=== PATIENT | female | born 1965 | race Caucasian/White ===

== ENCOUNTER → 2024-05-26 | Outpatient (CLI) | payer BC ==
[~2024-05-26] MED LIST: ACET325 PO; ASPI81CH PO; COVARYX H.S. T1 EACH; Cyclobenzaprine10 MG PO; DILT60 PO; Inderal; NICO21TP TOP; Norco 5-325 Ta1 EACH PO; PROM25 PO; PROP60 PO; SUMA25 PO; SUMA5NI; TERB250 PO; TRAM50 PO
[2024-05-26 16:02] LABS: BASOPHILS ABSOLUTE AUTO 0.07 K/mm3 (0.00-0.23); BASOPHILS PERCENT AUTO 1 % (0-2); EOSINOPHILS ABSOLUTE AUTO 0.24 K/mm3 (0.00-0.68); EOSINOPHILS PERCENT AUTO 2 % (0-6); Hematocrit 39.2 % (33.0-51.0); Hemoglobin 13.1 g/dL (11.5-16.0); IMMATURE GRAN ABSOLUTE AUTO 0.04 K/mm3 (0.00-0.10); IMMATURE GRAN PERCENT AUTO 0 % (0-1); LYMPHOCYTES ABSOLUTE AUTO 2.46 K/mm3 (0.84-5.20); LYMPHOCYTES PERCENT AUTO 21 % (21-46); MONOCYTES ABSOLUTE AUTO 0.97 K/mm3 (0.16-1.47); MONOCYTES PERCENT AUTO 8 % (4-13); Mean Corpuscular HGB 30.8 pg (26.0-34.0); Mean Corpuscular HGB Conc 33.4 g/dL (31.5-36.5); Mean Corpuscular Volume 92 fL (80-100); Mean Platelet Volume 10.3 fL (9.1-12.4); NEUTROPHILS ABSOLUTE AUTO 7.86 K/mm3 (1.96-9.15); NEUTROPHILS PERCENT AUTO 68 % (41-73); Platelet Count 284 K/mm3 (150-400); RDW Coefficient Variation 13.7 % (11.7-14.2); RDW Standard Deviation 46.4 fL (35.1-46.3); Red Blood Cell Count 4.25 M/mm3 (3.80-5.20); White Blood Cell Count 11.64 K/mm3 (4.00-11.30)
[2024-05-26 16:05] LABS: Bun/Creatinine Ratio 29.2 (12.0-20.0); Creatinine, Blood 0.72 mg/dL (0.40-1.00); Potassium, Blood 3.9 mmol/L (3.5-5.5)
== END | disposition home or self-care (01) ==
LOC: LAB 15:57 → LAB SHORT 15:57
PROVIDERS: Physician Assistant Medical
DX: R10.32 Left lower quadrant pain (principal)
CPT/HCPCS: 80048; 85025

== ENCOUNTER 2024-06-02 13:10 | Inpatient (IN) | payer BC ==
[~2024-06-02] VITALS: Ht 157.5 cm; Wt 60.7 kg
[~2024-06-02 13:10] MED LIST changes: -AMOCLA875 PO; -DOCU100 PO; -VISBIOME 112.51 EACH PO
[2024-06-02] MEDS ORDERED: Morphine Sulfate 4 MG/1 ML Injection IV ONE (13:35)
[2024-06-02] MEDS ORDERED: Ondansetron HCl 2 MG / ML 2ML Vial IV ONE (13:35)
[2024-06-02] MEDS ORDERED: NS 1,000 ML IV SCH ×2 (13:35→15:45)
[2024-06-02] MEDS ORDERED: Piperacillin/Tazobactam Sod 3.375 GM in NS 100 ML IV ONE (13:40)
[2024-06-02] MEDS ORDERED: Ondansetron HCl 2 MG / ML 2ML Vial IV PRN (15:45)
[2024-06-02] MEDS ORDERED: FLU VACC TS2024-25(6MOS UP)/PF 45 MCG/0.5 ML SYRINGE IM SCH (15:45)
[2024-06-02] MEDS ORDERED: FentaNYL Citrate 50 MCG/ML 2 ML Injection IV PRN (15:45)
[2024-06-02] MEDS ORDERED: Piperacillin/Tazobactam Sod 3.375 GM in NS 100 ML IV SCH (18:00)
[2024-06-02 18:40] VITALS: BP 121/64
[2024-06-02 19:31] VITALS: BP 119/63
[2024-06-02] MEDS ORDERED: Morphine Sulfate 4 MG/1 ML Injection IV STA (19:53)
[2024-06-02] MEDS ORDERED: Morphine Sulfate 4 MG/1 ML Injection IV PRN (20:00)
[2024-06-03 03:46] VITALS: BP 119/70
[2024-06-03 04:56] LABS: BASOPHILS ABSOLUTE AUTO 0.06 K/mm3 (0.00-0.23); BASOPHILS PERCENT AUTO 0 % (0-2); EOSINOPHILS ABSOLUTE AUTO 0.03 K/mm3 (0.00-0.68); EOSINOPHILS PERCENT AUTO 0 % (0-6); Hematocrit 32.7 % (33.0-51.0); IMMATURE GRAN ABSOLUTE AUTO 0.13 K/mm3 (0.00-0.10); IMMATURE GRAN PERCENT AUTO 1 % (0-1); LYMPHOCYTES ABSOLUTE AUTO 1.91 K/mm3 (0.84-5.20); LYMPHOCYTES PERCENT AUTO 9 % (21-46); MONOCYTES PERCENT AUTO 9 % (4-13); Mean Corpuscular HGB 30.6 pg (26.0-34.0); Mean Corpuscular HGB Conc 33.6 g/dL (31.5-36.5); Mean Corpuscular Volume 91 fL (80-100); Mean Platelet Volume 10.7 fL (9.1-12.4); NEUTROPHILS ABSOLUTE AUTO 18.28 K/mm3 (1.96-9.15); NEUTROPHILS PERCENT AUTO 82 % (41-73); Platelet Count 337 K/mm3 (150-400); RDW Coefficient Variation 13.4 % (11.7-14.2); RDW Standard Deviation 44.7 fL (35.1-46.3); White Blood Cell Count 22.31 K/mm3 (4.00-11.30)
[2024-06-03 05:23] LABS: Albumin, Blood 2.2 g/dL (3.4-5.0); Albumin/Globulin Ratio 0.5 (0.8-1.8); Bilirubin, Total 0.5 mg/dL (0.1-1.0); Bun/Creatinine Ratio 29.3 (12.0-20.0); Calcium, Blood 8.7 mg/dL (8.5-10.1); Creatinine, Blood 0.41 mg/dL (0.40-1.00); Globulin, Blood 4.3 g/dL (2.2-4.0); Potassium, Blood 3.2 mmol/L (3.5-5.5); Total Protein, Blood 6.5 g/dL (6.4-8.2)
[2024-06-03 07:23] VITALS: BP 117/73
[2024-06-03] MEDS ORDERED: HYDROcodone 5-APAP 325 TAB PO PRN (08:15)
[2024-06-03] MEDS ORDERED: Cyclobenzaprine HCl 10 MG Tab PO PRN (08:15)
[2024-06-03] MEDS ORDERED: SUMAtriptan succinate 50 MG Tab PO PRN (08:15)
[2024-06-03] MEDS ORDERED: Potassium Chl 20MEQ/Water100ML 100 ML IV SCH (08:40)
[2024-06-03] MEDS ORDERED: dilTIAZem HCL 60 MG TAB PO SCH (09:00)
[2024-06-03] MEDS ORDERED: Propranolol HCL 60 MG CAPCR PO SCH (09:00)
[2024-06-03] MEDS ORDERED: Enoxaparin 40 MG/0.4 ML SYR SC SCH (09:00)
--- NOTE | 2024-06-03 09:12 | NUR ---
NOTE: SPOKE WITH DR. JEFFERSON ABOUT SURGERY CONSULT. PER DR. JEFFERSON, ER PROVIDER SPOKE WITH DR. DWYER DOWN IN THE ER EVEN THOUGH THERE IS NO CONSULT AT THIS TIME IN THE CHART. SHE ALSO ORDERED PO MEDICATIONS FOR THE PT AND PER DR. JEFFERSON, OKAY TO GIVE ORAL MEDICATIONS AT THIS TIME. WILL GIVE MEDICATIONS PER THE EMAR.
[2024-06-03 15:39] VITALS: BP 119/68
--- NOTE | 2024-06-03 17:04 | NUR ---
SHIFT SUMMARY PT AOX4, INDEPENDENT IN THE ROOM. AT THE BS THIS SHIFT. PT PUT ON CLEAR LIQUIDS. TOLERATING WELL. MEDICATED FOR PAIN PER THE EMAR, ATTEMPTING TO USE MORE ORAL PAIN MEDICATIONS. PT CALLS AND MAKES HER NEEDS KNOWN. PT REPOSITIONS HERSELF IN BED. CALL LIGHT WITHIN REACH, BED LOCKED AND IN THE LOWEST POSITION. WILL REPORT TO ONGOING NURSE.
[2024-06-03 19:15] VITALS: BP 118/64
[2024-06-03] MEDS ORDERED: dilTIAZem HCL 60 MG TAB PO ONE (21:00)
[2024-06-04 03:41] VITALS: BP 111/59
[2024-06-04 05:09] LABS: Hematocrit 30.3 % (33.0-51.0); Hemoglobin 10.2 g/dL (11.5-16.0); Mean Corpuscular HGB 30.3 pg (26.0-34.0); Mean Corpuscular HGB Conc 33.7 g/dL (31.5-36.5); Mean Corpuscular Volume 90 fL (80-100); Mean Platelet Volume 10.4 fL (9.1-12.4); Platelet Count 351 K/mm3 (150-400); RDW Coefficient Variation 13.6 % (11.7-14.2); RDW Standard Deviation 44.7 fL (35.1-46.3); Red Blood Cell Count 3.37 M/mm3 (3.80-5.20); White Blood Cell Count 13.98 K/mm3 (4.00-11.30)
[2024-06-04 05:24] LABS: Bun/Creatinine Ratio 15.4 (12.0-20.0); Calcium, Blood 8.9 mg/dL (8.5-10.1); Creatinine, Blood 0.45 mg/dL (0.40-1.00); Potassium, Blood 3.2 mmol/L (3.5-5.5)
[2024-06-04 07:44] VITALS: BP 104/67
[2024-06-04] MEDS ORDERED: HYDROcodone 5-APAP 325 TAB PO PRN (08:10)
[2024-06-04] MEDS ORDERED: Potassium Chloride 20 MEQ TabCR PO SCH (08:15)
[2024-06-04] MEDS ORDERED: dilTIAZem HCL 120 MG CAP.CD PO SCH (09:00)
[2024-06-04] MEDS ORDERED: Propranolol HCL 20 MG TAB PO SCH (09:00)
[2024-06-04 15:10] VITALS: BP 100/53
--- NOTE | 2024-06-04 18:35 | NUR ---
SHIFT SUMMARY PT A&0X4. PT ADMITTED DUE TO PERFORATED DIVERTICULI. PT REPORTS LOWER LEFT ABDOMEN PAIN. PAIN MANAGED PER EMAR. PT REPORTS PAIN IMPROVEMENT. PT ON CLEAR LIQUID DIET, AND IS TOLERATING. VSS. PT RECIEVING ANTIBIOTICS. PT REPORTS HAVING BM TODAY. PT INDEPENDENT TO ROOM. PT HAD VISITORS THROUGH SHIFT. PT REPORTS NO NAUSEA/VOMITING. PT USES CALL LIGHT APPROPRIATELY, AND CALL LIGHT IN REACH.
[2024-06-04 19:47] VITALS: BP 104/45
[2024-06-04] MEDS ORDERED: Docusate Sodium 100 MG Cap PO SCH (21:00)
[2024-06-05 03:55] VITALS: BP 91/59
--- NOTE | 2024-06-05 05:31 | NUR ---
SHIFT SUMMARY: MARTHA IS A&OX4. VSS, NO ACUTE EVENTS OVERNIGHT. SHE REPORTS HAVING HAD TWO BOWEL MOVEMENTS IN THE LAST TWENTY-FOUR HOURS, IS TOLERATING THE CLEAR LIQUID DIET WELL, AND REPORTS ADEQUATE PAIN MANAGEMENT WITH MEDICATIONS PER MAR. IV TO R AC PATENT, SHE IS INDEPENDENT IN THE ROOM, AND IS CONTINENT OF BLADDER AND BOWEL. SHE IS LYING IN BED WITH THE CALL LIGHT IN REACH, BED IN LOWEST POSITION. WILL GIVE REPORT TO DAY SHIFT RN.
[2024-06-05 06:53] LABS: Hematocrit 30.5 % (33.0-51.0); Hemoglobin 10.1 g/dL (11.5-16.0); Mean Corpuscular HGB Conc 33.1 g/dL (31.5-36.5); Mean Corpuscular Volume 91 fL (80-100); Mean Platelet Volume 10.6 fL (9.1-12.4); Platelet Count 397 K/mm3 (150-400); RDW Coefficient Variation 13.5 % (11.7-14.2); RDW Standard Deviation 44.9 fL (35.1-46.3); Red Blood Cell Count 3.37 M/mm3 (3.80-5.20)
[2024-06-05 07:17] LABS: Calcium, Blood 9.4 mg/dL (8.5-10.1); Creatinine, Blood 0.44 mg/dL (0.40-1.00); Magnesium, Blood 2.1 mg/dL (1.6-2.4); Potassium, Blood 3.6 mmol/L (3.5-5.5)
[2024-06-05 07:35] VITALS: BP 112/72
[2024-06-05 16:27] VITALS: BP 90/65
--- NOTE | 2024-06-05 16:55 | NUR ---
SHIFT SUMMARY PT A&OX4. PT ADMITTED DUE TO PERFORATED DIVERTICULUM. PT RECIEVING ANTIBIOTICS. PT HAS LOWER LEFT QUADRANT ABDOMEN PAIN, BEING TREATED PER EMAR. PT DIET WAS ADVANCED TO FULL LIQUIDS, TOLERATING ADVANCED DIET WITH NO REPORTS OF NAUSEA AND VOMITING. PT INDEPENDENT TO ROOM. SCD'S ON BLE. PT ON ROOM AIR. PLAN FOR PT TO HAVE A REPEAT CT SCAN IN AM. PT REPORTS HAVING HAD A SMALL BM TODAY DURING SHIFT AND PASSING GAS. PT CALLS APPROPRIATELY AND CALL LIGHT IN REACH. VISITORS IN AND OUT OF ROOM.
[2024-06-05 20:55] VITALS: BP 100/54
--- NOTE | 2024-06-06 03:23 | NUR ---
SHIFT SUMMARY: PT ALERT ORIENTED X 4 ABLE TO VERBALIZE NEEDS. AMBULATES AD LIANNE IN ROOM. GOT UP AND GOT IN SHOWER THIS SHIFT. VSS SATTING AT 97% ON RA. C/O LLQ ABD PAIN MEDICATED WITH NORCO WITH GOOD PAIN RELIEF. SHES DUE TO HAVE A CT SCAN DONE OF HER ABDOMEN THIS AM. REMAINS ON ZOSYN Q6HR. NO C/O N/V THIS SHIFT. SLEEPING IN BED AT THIS TIME.
[2024-06-06 04:21] VITALS: BP 104/61
[2024-06-06 07:28] VITALS: BP 127/76
[2024-06-06] MEDS ORDERED: DOCU100 PO (15:11)
[2024-06-06] MEDS ORDERED: AMOCLA875 PO (15:12)
[2024-06-06] MEDS ORDERED: VISBIOME 112.51 EACH PO (15:12)
--- NOTE | 2024-06-06 16:40 | NUR ---
DISCHARGE NOTE PT ADMITTED DUE TO PERFORATED DIVERTICULUM. PT TAKEN OUT BY WHEELCHAIR BY RIB TRIM SEPARATOR AND SPOUSE. PT PICKED UP BY SPOUSE VIA AUTOMOBILE. PT EDUCATED ON MEDS AND DISCHARGE BY SHELLEY UREÑA. MEDS FAXED TO PREFERRED PHARMACY. PT LEFT WITH ALL PERSONAL BELONGINGS.
== END 2024-06-06 15:45 | disposition home or self-care (01) | DRG 872 ==
LOC: ER 13:10 → MEDS 15:43 → ERHOLD 15:43 → MEDS 18:22 → ENPENDDIS 06-06 13:19 → MEDS 06-06 15:45
PROVIDERS: ADMIT Internal Medicine
DX: A41.9 Sepsis, unspecified organism (principal); K57.20 Diverticulitis of large intestine with perforation and abscess without bleeding; E44.0 Moderate protein-calorie malnutrition; K57.92 Diverticulitis of intestine, part unspecified, without perforation or abscess without bleeding; K57.32 Diverticulitis of large intestine without perforation or abscess without bleeding; G43.909 Migraine, unspecified, not intractable, without status migrainosus; F17.210 Nicotine dependence, cigarettes, uncomplicated; E86.0 Dehydration; I48.0 Paroxysmal atrial fibrillation; Z68.24 Body mass index [BMI] 24.0-24.9, adult; Z98.51 Tubal ligation status; Z79.82 Long term (current) use of aspirin; Z79.899 Other long term (current) drug therapy; Z98.890 Other specified postprocedural states; R10.32 Left lower quadrant pain; M51.369 Other intervertebral disc degeneration, lumbar region without mention of lumbar back pain or lower extremity pain; M51.379 Other intervertebral disc degeneration, lumbosacral region without mention of lumbar back pain or lower extremity pain; R19.5 Other fecal abnormalities
CPT/HCPCS: 36415; 74177; 80048; 80053; 83690; 83735; 85025; 85027; 87040; 96365; 96375; 99284-25; A9270; J2270; J2405; J2543; J3010; J3480; J7030; Q9967

== ENCOUNTER → 2024-06-02 | Outpatient (CLI) | payer BC ==
[~2024-06-02] MED LIST changes: +AMOCLA875 PO; +DILT120 PO; -DILT60 PO; +DOCU100 PO; +Inderal60 MG PO; -PROP60 PO; +VISBIOME 112.51 EACH PO
[2024-06-02 11:01] LABS: BASOPHILS ABSOLUTE AUTO 0.09 K/mm3 (0.00-0.23); BASOPHILS PERCENT AUTO 0 % (0-2); EOSINOPHILS ABSOLUTE AUTO 0.01 K/mm3 (0.00-0.68); EOSINOPHILS PERCENT AUTO 0 % (0-6); Hemoglobin 12.6 g/dL (11.5-16.0); IMMATURE GRAN ABSOLUTE AUTO 0.17 K/mm3 (0.00-0.10); IMMATURE GRAN PERCENT AUTO 1 % (0-1); LYMPHOCYTES ABSOLUTE AUTO 1.64 K/mm3 (0.84-5.20); LYMPHOCYTES PERCENT AUTO 6 % (21-46); MONOCYTES ABSOLUTE AUTO 2.05 K/mm3 (0.16-1.47); MONOCYTES PERCENT AUTO 7 % (4-13); Mean Corpuscular HGB 30.9 pg (26.0-34.0); Mean Corpuscular Volume 88 fL (80-100); Mean Platelet Volume 10.5 fL (9.1-12.4); NEUTROPHILS ABSOLUTE AUTO 24.13 K/mm3 (1.96-9.15); NEUTROPHILS PERCENT AUTO 86 % (41-73); Platelet Count 358 K/mm3 (150-400); RDW Coefficient Variation 13.2 % (11.7-14.2); RDW Standard Deviation 42.4 fL (35.1-46.3); Red Blood Cell Count 4.08 M/mm3 (3.80-5.20); White Blood Cell Count 28.09 K/mm3 (4.00-11.30)
[2024-06-02 11:09] LABS: Albumin, Blood 2.6 g/dL (3.4-5.0); Albumin/Globulin Ratio 0.5 (0.8-1.8); Bilirubin, Total 0.6 mg/dL (0.1-1.0); Bun/Creatinine Ratio 23.9 (12.0-20.0); Calcium, Blood 9.3 mg/dL (8.5-10.1); Creatinine, Blood 0.67 mg/dL (0.40-1.00); Potassium, Blood 3.7 mmol/L (3.5-5.5); Total Protein, Blood 7.6 g/dL (6.4-8.2)
[2024-06-02 11:52] LABS: BAND PERCENT MAN 2 % (0-8); BASOPHILS PERCENT MAN 0 % (0-2); EOSINOPHILS ABSOLUTE MAN 0.56 K/mm3 (0.00-0.68); EOSINOPHILS PERCENT MAN 2 % (0-6); LYMPHOCYTES PERCENT MAN 5 % (21-46); MONOCYTES ABSOLUTE MAN 1.12 K/mm3 (0.16-1.47); MONOCYTES PERCENT MAN 4 % (4-13); SEG NEUTROPHILS PERCENT MAN 87 % (41-73); TOTAL CELLS COUNTED 100
== END | disposition home or self-care (01) ==
LOC: LAB SHORT 10:54 → LAB 10:54
PROVIDERS: Physician Assistant
DX: R10.32 Left lower quadrant pain (principal)
CPT/HCPCS: 80053; 83690; 85025

== ENCOUNTER 2024-07-19 09:02 | Day surgery (SDC) | payer BC ==
[~2024-07-19] VITALS: Ht 157.5 cm; Wt 58.8 kg
[~2024-07-19 09:02] MED LIST changes: +AMOCLA875 PO; +DILT120ERA PO; +DOCU100 PO; +ESTRADIOL1 MG PO; +HYDROCODONE-AC1 EA19 PO; +IMITREX50 M1 PO; +Inderal 20 mg T20 MG PO; +Lactated Ringer's 1,000 ML IV ONE; +Methocarbamol500 MG PO; +PROBIOTIC PO; +VISBIOME 112.51 EACH PO; +propofoL 40 ML IV ONE
[2024-07-19] MEDS ORDERED: Lactated Ringer's 1,000 ML IV ONE (11:00)
[2024-07-19 12:00] VITALS: BP 120/84
== END 2024-07-19 12:12 | disposition home or self-care (01) ==
LOC: ORSCSDS 09:02
PROVIDERS: Surgery
PROC: 0DJD8ZZ Inspection of Lower Intestinal Tract, Via Natural or Artificial Opening Endoscopic (ICD-10-PCS; principal; 2024-07-19 10:30)
DX: K57.92 Diverticulitis of intestine, part unspecified, without perforation or abscess without bleeding (principal); I48.91 Unspecified atrial fibrillation; K57.30 Diverticulosis of large intestine without perforation or abscess without bleeding; Z79.899 Other long term (current) drug therapy
CPT/HCPCS: J2704; J7120